=== PATIENT | female | born 1985 | race Caucasian/White ===

== ENCOUNTER 2017-09-10 06:30 | Emergency (ER) | payer SELFPAY ==
[~2017-09-10] VITALS: Ht 157.5 cm; Wt 79.8 kg
[2017-09-10 06:42] VITALS: BP 128/71; Ht 157.5 cm; Wt 79.8 kg
== END 2017-09-10 08:14 | disposition left against medical advice (07) ==
LOC: ED 06:30
DX: O26.892 Other specified pregnancy related conditions, second trimester (principal); R10.31 Right lower quadrant pain; Z3A.14 14 weeks gestation of pregnancy

== ENCOUNTER 2019-01-18 01:09 | Emergency (ER) | payer MEDICAID ==
[~2019-01-18] VITALS: Ht 162.6 cm; Wt 75.7 kg
[2019-01-18 01:12] VITALS: Ht 162.6 cm; Wt 75.7 kg
[2019-01-18 04:25] VITALS: BP 125/66
== END 2019-01-18 04:25 | disposition home or self-care (01) ==
LOC: ED 01:09
DX: S13.4XXA Sprain of ligaments of cervical spine, initial encounter (principal); S23.3XXA Sprain of ligaments of thoracic spine, initial encounter; R51 Headache; V49.9XXA Car occupant (driver) (passenger) injured in unspecified traffic accident, initial encounter; Y93.I9 Activity, other involving external motion; Y92.413 State road as the place of occurrence of the external cause; Y99.8 Other external cause status